=== PATIENT | male | born 1945 | race Caucasian/White ===

== ENCOUNTER → 2018-04-26 | Outpatient (CLI) | payer MEDICARE, BC | END | disposition home or self-care (01) | LOC: CFH 10:29 | PROVIDERS: ATTEND Dermatology | DX: Z02.9 Encounter for administrative examinations, unspecified (principal) ==

== ENCOUNTER 2018-05-08 14:54 | Outpatient (CLI) | payer MEDICARE, BC | END 2018-05-08 23:59 | disposition home or self-care (01) | LOC: CFH 14:54 | PROVIDERS: ATTEND Dermatology | DX: Z08 Encounter for follow-up examination after completed treatment for malignant neoplasm (principal); R22.1 Localized swelling, mass and lump, neck; Z85.820 Personal history of malignant melanoma of skin | CPT/HCPCS: 76536 ==